=== PATIENT | female | born 1955 | race Caucasian/White ===

== ENCOUNTER → 2018-12-31 | Outpatient (CLI) | payer OTHER ==
[~2018-12-31] MED LIST: GLIPIZIDE 10 MG10 M1 PO; GLUCOTROL5 MG PO; LANTUSSOLASTAR SQ; LEVOXYL75 MCG PO; LOVASTAT40 PO; NEURONTIN600 MG PO; TOPROL XL50 MG PO; TRIGLIDE50 MG PO
== END ==
LOC: M.WC 05:14
DX: E11.621 Type 2 diabetes mellitus with foot ulcer (principal); L97.521 Non-pressure chronic ulcer of other part of left foot limited to breakdown of skin; E11.36 Type 2 diabetes mellitus with diabetic cataract; F32.9 Major depressive disorder, single episode, unspecified; Z79.82 Long term (current) use of aspirin; Z79.4 Long term (current) use of insulin

== ENCOUNTER → 2019-01-07 | Outpatient (CLI) | payer OTHER | LOC: M.WC 14:12 | DX: E11.621 Type 2 diabetes mellitus with foot ulcer (principal); L97.521 Non-pressure chronic ulcer of other part of left foot limited to breakdown of skin; E11.40 Type 2 diabetes mellitus with diabetic neuropathy, unspecified; E11.36 Type 2 diabetes mellitus with diabetic cataract; F32.9 Major depressive disorder, single episode, unspecified ==

== ENCOUNTER → 2019-01-14 | Outpatient (CLI) | payer OTHER | LOC: M.WC 04:47 | DX: E11.621 Type 2 diabetes mellitus with foot ulcer (principal); L97.521 Non-pressure chronic ulcer of other part of left foot limited to breakdown of skin; E11.36 Type 2 diabetes mellitus with diabetic cataract; F32.9 Major depressive disorder, single episode, unspecified ==